=== PATIENT | male | born 1935 | race Caucasian/White ===

== ENCOUNTER 2017-08-19 12:23 | Day surgery (SDC) | payer MEDICARE ==
[~2017-08-19] VITALS: Ht 172.7 cm; Wt 102.8 kg
[~2017-08-19 12:23] MED LIST: 24 HOUR ALLER15.8 ML; ALPHA; AMLODIPINE-ATO1 EAC2; ASCO500; ATOR40TA; CALCIUM CITRAT1 EAC6; CENTRUM SILVER1 EAC2; DORZOPSO; HYDCHL12.5; HYDCHL25; HYDR1TAB94; LATA.005SO; METFORMIN HCL1000 MG; METO50ER; MULT50L; Niaspan1000 MG; OMEP20ER; Omeprazole20 M1; PROM25S; RAMI5; Ramipril10 MG; SIMV40; Saw Palmetto500 MG; Saw Palmetto80 MG; TAMS.4ER; TIMO.5OPSO; TIMOPTIC 0.25%1 EACH; UBID10; Veramyst10 GM; Xalatan2.5 ML
[2017-08-19] MEDS ORDERED: ATOR40TA PO (13:08)
[2017-08-19] MEDS ORDERED: Combigan Eye Dro5 ML (13:08)
== END 2017-08-19 15:40 | disposition home or self-care (01) ==
LOC: ORSCSDS 12:23
PROVIDERS: Internal Medicine Gastroenterology
PROC: 0DBN8ZX Excision of Sigmoid Colon, Via Natural or Artificial Opening Endoscopic, Diagnostic (ICD-10-PCS; principal; 2017-08-19 14:00)
PROC: 0DBM8ZX Excision of Descending Colon, Via Natural or Artificial Opening Endoscopic, Diagnostic (ICD-10-PCS; principal; 2017-08-19 14:00)
PROC: 0DBK8ZX Excision of Ascending Colon, Via Natural or Artificial Opening Endoscopic, Diagnostic (ICD-10-PCS; principal; 2017-08-19 14:00)
DX: Z12.11 Encounter for screening for malignant neoplasm of colon (principal); D12.2 Benign neoplasm of ascending colon; D12.4 Benign neoplasm of descending colon; D12.5 Benign neoplasm of sigmoid colon; K64.8 Other hemorrhoids; Z80.0 Family history of malignant neoplasm of digestive organs; E11.319 Type 2 diabetes mellitus with unspecified diabetic retinopathy without macular edema; I10 Essential (primary) hypertension; N40.0 Benign prostatic hyperplasia without lower urinary tract symptoms; E78.5 Hyperlipidemia, unspecified; F17.210 Nicotine dependence, cigarettes, uncomplicated; Z79.84 Long term (current) use of oral hypoglycemic drugs; Z79.899 Other long term (current) drug therapy
CPT/HCPCS: 82947; 88305; 93005; 93010; J7120

== ENCOUNTER 2019-08-11 08:44 | Day surgery (SDC) | payer MEDICARE ==
[~2019-08-11] VITALS: Ht 172.7 cm; Wt 110.4 kg
[~2019-08-11 08:44] MED LIST changes: +ATOR40TA PO; +Combigan Eye Dro5 ML
== END 2019-08-11 11:46 | disposition home or self-care (01) ==
LOC: ORSCSDS 08:44
PROVIDERS: Ophthalmology
PROC: 08RJ3JZ Replacement of Right Lens with Synthetic Substitute, Percutaneous Approach (ICD-10-PCS; principal; 2019-08-11 10:30)
DX: H25.11 Age-related nuclear cataract, right eye (principal); I10 Essential (primary) hypertension; E11.9 Type 2 diabetes mellitus without complications; Z79.899 Other long term (current) drug therapy; K21.9 Gastro-esophageal reflux disease without esophagitis; Z87.891 Personal history of nicotine dependence; Z79.84 Long term (current) use of oral hypoglycemic drugs
CPT/HCPCS: 82947; J2001; J2250; J3010; J3301; J7040; V2632

== ENCOUNTER → 2021-11-15 | Outpatient (CLI) | payer OTHER | END | disposition home or self-care (01) | LOC: LAB 11:22 → PLD 11:22 → LAB SHORT 11:22 | DX: D04.4 Carcinoma in situ of skin of scalp and neck (principal); L57.0 Actinic keratosis | CPT/HCPCS: 88305 ==

== ENCOUNTER → 2022-08-01 | Outpatient (CLI) | payer OTHER | LOC: LAB SHORT 14:53 → PLD 14:53 | DX: D48.5 Neoplasm of uncertain behavior of skin (principal) | CPT/HCPCS: 88305 ==

== ENCOUNTER → 2022-08-27 | Outpatient (CLI) | payer OTHER | LOC: PLD 07:57 → LAB SHORT 07:57 | DX: L81.4 Other melanin hyperpigmentation (principal) | CPT/HCPCS: 88305 ==

== ENCOUNTER → 2022-09-10 | Outpatient (CLI) | payer OTHER | END | disposition home or self-care (01) | LOC: LAB SHORT 14:33 → LAB 14:33 | DX: C44.310 Basal cell carcinoma of skin of unspecified parts of face (principal) | CPT/HCPCS: 88305 ==

== ENCOUNTER → 2023-01-27 | Outpatient (CLI) | payer OTHER ==
[2023-01-27 13:50] LABS: Alanine Aminotransfer (ALT/SGP 33 U/L (12-78); Albumin, Blood 3.8 g/dL (3.4-5.0); Albumin/Globulin Ratio 1.2 (0.8-1.8); Alk Phos 70 U/L (50-136); Anion Gap 7 mmol/L (6-16); Aspartate Aminotrans (AST/SGOT 26 U/L (12-37); Bilirubin, Total 0.7 mg/dL (0.1-1.0); Blood Urea Nitrogen 24 mg/dL (8-24); Bun/Creatinine Ratio 27.7 (12.0-20.0); CO2, Blood 27 mmol/L (21-32); Calcium, Blood 10.1 mg/dL (8.5-10.1); Chloride, Blood 108 mmol/L (98-108); Cholesterol 137 mg/dL (50-200); Creatinine, Blood 0.87 mg/dL (0.60-1.20); Globulin, Blood 3.2 g/dL (2.2-4.0); Glomerular Filtration Rate 84 (60-); Glucose, Blood 123 mg/dL (70-99); HDL Cholesterol 45 mg/dL (>39); LDL/HDL RATIO 1.5; Low Density Lipoprotein Chol 68 mg/dL (0-110); Potassium, Blood 3.9 mmol/L (3.5-5.5); Sodium, Blood 142 mmol/L (136-145); Triglycerides 118 mg/dL (30-160); Very Low Density Lipoprot Chol 23 mg/dL (6-32)
== END | disposition home or self-care (01) ==
LOC: LAB SHORT 12:05 → LAB 12:05
PROVIDERS: Physician Assistant
DX: E11.69 Type 2 diabetes mellitus with other specified complication (principal); E11.29 Type 2 diabetes mellitus with other diabetic kidney complication; E11.59 Type 2 diabetes mellitus with other circulatory complications; E78.2 Mixed hyperlipidemia
CPT/HCPCS: 80053; 80061; 83036

== ENCOUNTER → 2023-02-28 | Outpatient (CLI) | payer OTHER | END | disposition home or self-care (01) | LOC: LAB SHORT 07:43 → PLD 07:43 | DX: C44.229 Squamous cell carcinoma of skin of left ear and external auricular canal (principal) | CPT/HCPCS: 88305 ==

== ENCOUNTER → 2023-05-19 | Outpatient (CLI) | payer OTHER ==
[~2023-05-19] MED LIST changes: +AMLO5 PO; -CENTRUM SILVER1 EAC2; +CENTRUM SILVER1 EAC2 PO; +COMBIGAN EYE BOTHEYES; -Combigan Eye Dro5 ML; +DORZOPSO BOTHEYES; -HYDCHL25; +HYDCHL25 PO; +IBUP200 PO; +LATA.005SO BOTHEYES; +OMEP20ER PO; -Omeprazole20 M1; -Ramipril10 MG; +Ramipril10 MG PO; +TIMO.25OPS BOTHEYES; -TIMOPTIC 0.25%1 EACH; -UBID10; +UBID10 PO; -Xalatan2.5 ML
== END ==
LOC: LAB SHORT 14:44 → LAB 14:44
DX: C44.229 Squamous cell carcinoma of skin of left ear and external auricular canal (principal)
CPT/HCPCS: 88305

== ENCOUNTER 2023-07-10 08:02 | Day surgery (SDC) | payer OTHER ==
[~2023-07-10] VITALS: Ht 172.7 cm; Wt 112.0 kg
[2023-07-10] VITALS (7 sets, daily range): BP systolic 139–162; BP diastolic 51–89
--- NOTE | 2023-07-10 10:44 | NUR ---
PT BACK TO THE RECOVERY ROOM VIA RECLINER AFTER PROCEDURE. AWAKE AND ALERT, DENIES ANY PAIN OR DISCOMFORT. RIGHT RADIAL SITE WITH PRELUDE BAND AND SPLINT IN PLACE.
--- NOTE | 2023-07-10 11:01 | NUR ---
DR PINO IN ROOM DISCUSSING PLAN OF CARE. PITER. CHERYL. CALL LIGHT WITHIN REACH.
--- NOTE | 2023-07-10 11:22 | NUR ---
APPROX 3CC'S AIR REMOVED FROM RIGHT RADIAL PRELUDE BAND. NO BLEEDING OR SWELLING AT SITE. PT VISITING WITH FAMILY IN NO DISTRESS. CALL LIGHT IN REACH
--- NOTE | 2023-07-10 11:45 | NUR ---
RIGHT RADIAL PRELUDE BAND HAS BEEN FULLY DEFLATED. NO BLEEDING OR SWELLING NOTED AT SITE. PT VISITING WITH FAMILY, DENIES PAIN OR NEEDS. VSS, CALL LIGHT IN REACH.
--- NOTE | 2023-07-10 12:45 | NUR ---
IV DC'D, CATH INTACT. PT AND FAMILY VERBALIZED UNDERSTANDING OF DISCHARGE AND FOLLOW UP INFO. RIGHT RADIAL SITE SOFT AND NON-TENDER. CLOTH DOT DRESSING AND SPLINT IN PLACE ON RIGHT WRIST. PT OUT TO CAR VIA WHEELCHAIR, ACCOMPANIED BY SPOUSE AND DAUGHTER.
== END 2023-07-10 22:53 | disposition home or self-care (01) ==
LOC: MHTC 08:02
DX: Z01.810 Encounter for preprocedural cardiovascular examination (principal); I35.0 Nonrheumatic aortic (valve) stenosis; I25.10 Atherosclerotic heart disease of native coronary artery without angina pectoris; I10 Essential (primary) hypertension; E78.5 Hyperlipidemia, unspecified; E11.9 Type 2 diabetes mellitus without complications; K21.9 Gastro-esophageal reflux disease without esophagitis; Z79.899 Other long term (current) drug therapy
CPT/HCPCS: 76937; 93454; 99152; 99153; C1769; C1887; C1894; J1644; J2250; J3010; J7030; J7050; Q9967

== ENCOUNTER 2024-04-08 06:21 | Day surgery (SDC) | payer OTHER ==
[2024-04-08] VITALS (11 sets, daily range): BP systolic 113–170; BP diastolic 58–90
[~2024-04-08] VITALS: Ht 172.7 cm; Wt 92.7 kg
[2024-04-08] MEDS ORDERED: Midazolam HCl 1MG / ML 2ML Vial ONE (06:56)
[2024-04-08] MEDS ORDERED: propofoL 60 ML IV ONE (06:56)
[2024-04-08] MEDS ORDERED: Lactated Ringer's 1,000 ML IV SCH ×2 (07:00→10:55)
[2024-04-08] MEDS ORDERED: Chlorhexidine Mouth Care 15 ML UDC MT SCH (07:00)
[2024-04-08] MEDS ORDERED: OxyCODONE HCL 10 MG TABCR PO SCH (07:00)
[2024-04-08] MEDS ORDERED: Tranexamic Acid 100 ML IV SCH (07:00)
[2024-04-08] MEDS ORDERED: Acetaminophen 500 MG Tab PO SCH ×2 (07:00→16:00)
[2024-04-08] MEDS ORDERED: Ropivacaine 0.5% HCl/Pf 123.125 MG,EPINEPHrine HCL 0.25 MG,Ketorolac Tromethamine 15 MG... INFIL SCH (07:00)
[2024-04-08] MEDS ORDERED: CeFAZolin Sodium 2,000 MG in NS 100 ML IV SCH ×2 (07:00→17:00)
--- NOTE | 2024-04-08 07:05 | NUR ---
PT TO [facility] FOR RIGHT HIP ARTHROPLASTY WITH DR JOHNSON. PT HERE WITH HIS AND DAUGHTER. CHART REVIEWED. PLAN OF CARE DISCUSSED AND QUESTIONS ANSWERED.
[2024-04-08] MEDS ORDERED: OXYC5 (07:24)
--- NOTE | 2024-04-08 08:14 | NUR ---
PT GLASSES TO PACU
[2024-04-08] MEDS ORDERED: METO25 PO (08:25)
[2024-04-08] MEDS ORDERED: FentaNYL Citrate 50 MCG/ML 2 ML Injection ONE (08:43)
[2024-04-08] MEDS ORDERED: Ropivacaine 0.5% HCl/Pf 123.125 MG,EPINEPHrine HCL 0.25 MG,Clonidine HCl/Pf 40 MCG in N... INFIL SCH (09:00)
[2024-04-08] MEDS ORDERED: Glycopyrrolate 0.2 MG/ML 5ML VIAL ONE (09:35)
[2024-04-08] MEDS ORDERED: Atropine Sulfate 0.4 MG/1 ML Vial ONE ×4 (09:35→10:28)
[2024-04-08] MEDS ORDERED: ePHEDrine Sulfate 50 MG/ML 1ML Injection ONE (09:48)
[2024-04-08] MEDS ORDERED: OxyCODONE HCL 5 MG TAB PO PRN ×2 (10:50→10:55)
[2024-04-08] MEDS ORDERED: Promethazine HCl 25 MG Tab PO PRN (10:50)
[2024-04-08] MEDS ORDERED: HYDROmorphone HCl/Pf 1MG SYR IV PRN (10:55)
[2024-04-08] MEDS ORDERED: Magnesium Hydroxide Conc 10 ML UDC PO PRN (10:55)
[2024-04-08] MEDS ORDERED: Ondansetron HCl 2 MG / ML 2ML Vial IV PRN (10:55)
[2024-04-08] MEDS ORDERED: Prochlorperazine Edisylate 10 mg Vial IV PRN (10:55)
[2024-04-08] MEDS ORDERED: DiphenhydrAMINE HCL 25 MG Cap PO PRN (11:00)
[2024-04-08] MEDS ORDERED: FLU VACC TS2024-25(6MOS UP)/PF 45 MCG/0.5 ML SYRINGE IM SCH (11:00)
[2024-04-08] MEDS ORDERED: Metoclopramide HCl 5MG / ML 2ML Vial IV PRN (11:00)
[2024-04-08] MEDS ORDERED: Bisacodyl 10 MG Supp PR PRN (11:00)
--- NOTE | 2024-04-08 11:28 | NUR ---
PT ARRIVED TO THE ROOM VIA HOSPITAL BED. A&O X4, VSS. NOT ABLE TO FEEL TOUCH TO TOES AT THIS TIME. PPP. INCISION SITE COVERED WITH AQUACEL C/D/I. FAMILY AT BEDSIDE.
[2024-04-08] MEDS ORDERED: Ketorolac Tromethamine 15mg Vial IV SCH (12:00)
--- NOTE | 2024-04-08 17:33 | NUR ---
PT COMPLAINING OF BACK PAIN. LOWERED HEAD OF BED SLIGHTLY, PT REPORTED RELIEF OF PRESSURE CAUSING PAIN IN HIS BACK AT THIS TIME. MEDICATED PER EMAR.
--- NOTE | 2024-04-08 18:41 | NUR ---
SHIFT SUMMARY POD 0 RTHA. INCISION COVERED WITH AQUACEL, C/D/I. PT CAN WIGGLE AND FEEL TOES, BUT NOT LIFT LEGS OFF THE BED AT THIS TIME. EATING AND DRINKING WITHOUT DIFFICULTY. WAITING FOR FIRST POST OP VOID STILL. BLADDER SCANNED AT 1700 WITH 247ML. VSS. A&O X4. PPP. CALL LIGHT WITHIN REACH, BED IN LOWEST POSITION.
[2024-04-08] MEDS ORDERED: Docusate Sodium 100 MG Cap PO SCH (21:00)
[2024-04-09 00:28] VITALS: BP 132/87
[2024-04-09 04:22] VITALS: BP 124/67
[2024-04-09 04:48] LABS: BASOPHILS ABSOLUTE AUTO 0.03 K/mm3 (0.00-0.23); BASOPHILS PERCENT AUTO 0 % (0-2); EOSINOPHILS ABSOLUTE AUTO 0.23 K/mm3 (0.00-0.68); EOSINOPHILS PERCENT AUTO 3 % (0-6); Hematocrit 31.9 % (37.0-53.0); Hemoglobin 10.8 g/dL (13.5-17.5); IMMATURE GRAN ABSOLUTE AUTO 0.01 K/mm3 (0.00-0.10); IMMATURE GRAN PERCENT AUTO 0 % (0-1); LYMPHOCYTES ABSOLUTE AUTO 1.11 K/mm3 (0.84-5.20); LYMPHOCYTES PERCENT AUTO 15 % (21-46); MONOCYTES ABSOLUTE AUTO 0.89 K/mm3 (0.16-1.47); MONOCYTES PERCENT AUTO 12 % (4-13); Mean Corpuscular HGB 32.6 pg (26.0-34.0); Mean Corpuscular HGB Conc 33.9 g/dL (31.5-36.5); Mean Corpuscular Volume 96 fL (80-100); Mean Platelet Volume 11.1 fL (9.1-12.4); NEUTROPHILS ABSOLUTE AUTO 4.95 K/mm3 (1.96-9.15); NEUTROPHILS PERCENT AUTO 69 % (41-73); Platelet Count 144 K/mm3 (150-400); RDW Coefficient Variation 14.6 % (11.7-14.2); RDW Standard Deviation 51.7 fL (35.1-46.3); Red Blood Cell Count 3.31 M/mm3 (4.30-5.90); White Blood Cell Count 7.22 K/mm3 (4.00-11.30)
[2024-04-09 05:19] LABS: Bun/Creatinine Ratio 21.5 (12.0-20.0); Calcium, Blood 9.3 mg/dL (8.5-10.1); Creatinine, Blood 1.07 mg/dL (0.60-1.20); Magnesium, Blood 1.5 mg/dL (1.6-2.4); Potassium, Blood 3.3 mmol/L (3.5-5.5)
--- NOTE | 2024-04-09 05:48 | NUR ---
NOC SUMMARY- PT IS AMBULATING AND VOIDING/ PT REPORTS SOME N/T. PT PAIN MANAGED WELL. PT SLEPT IN RECLINER FOR COMFORT. PT HAS NO COMPLAINTS THIS AM. DRESSIING C/D/I. POLAR WRAP IN PLACE. CALL LIGHT IN REACH.
[2024-04-09 07:33] VITALS: BP 143/57
[2024-04-09] MEDS ORDERED: Aspirin 81 MG Chew PO SCH (09:00)
--- NOTE | 2024-04-09 11:23 | NUR ---
DISCHARGE SUMMARY POD1 R SANDEEP, A/OX4, VSS, TOLERATING PO, PAIN WELL MANAGED PER EMAR, AMBULATING WITH FWW/GB, VOIING INDEPENDENTLY. DISCUSSED DISCHARGE INSTRUCTIONS WITH HIM INCLUDING HOME CARE, MEDICATIONS, AND FOLLOW UP APPOINTMENTS. ANSWERED ALL PATIENT AND FAMILY QUESTIONS, REMOVED IV ACCESS, PT ESCTORTED OUT VIA WC TO PRIVATE AUTO TO GO HOME.
== END 2024-04-09 10:41 | disposition home or self-care (01) ==
LOC: ORSCMMR 06:21 → ORD 08:00 → ORSCMMR 08:00 → SURS 11:19 → ORSCMMR 04-09 10:41
PROVIDERS: Orthopaedic Surgery
PROC: 0SR90JZ Replacement of Right Hip Joint with Synthetic Substitute, Open Approach (ICD-10-PCS; principal; 2024-04-08 08:00)
DX: M16.11 Unilateral primary osteoarthritis, right hip (principal); I12.9 Hypertensive chronic kidney disease with stage 1 through stage 4 chronic kidney disease, or unspecified chronic kidney disease; E11.22 Type 2 diabetes mellitus with diabetic chronic kidney disease; N18.9 Chronic kidney disease, unspecified; E03.9 Hypothyroidism, unspecified; I25.10 Atherosclerotic heart disease of native coronary artery without angina pectoris; Z79.899 Other long term (current) drug therapy
CPT/HCPCS: 36415; 72170; 80048; 82947; 83735; 85025; 97110; 97162; 97530; A9270; C1776; J0171; J0461; J0690; J0735; J1885; J2250; J2704; J2795; J3010; J7120

== ENCOUNTER 2024-07-03 11:18 | Observation (INO) | payer OTHER ==
[~2024-07-03] VITALS: Ht 170.2 cm; Wt 92.9 kg
[~2024-07-03 11:18] MED LIST changes: -ASCO500 PO; -Alphagan P5 ML BOTHEYES; -Aspir 8181 MG PO; -FISH OIL 1,2001 EAC4 PO; -FLUTICASONE-SA1 EAC1; -LEVSOD75 PO; -LOSA25 PO; -OXYC5 PO; -POLY500 PO; -POTCHL20ER PO; -SENNA LAXATIVE8.6 MG PO; -TORSE20 PO; -VITAMIN B122500 MC1 PO; -XARELTO20 MG PO
[2024-07-03 12:40] LABS: Influenza A, PCR NEGATIVE (NEGATIVE); Influenza B, PCR NEGATIVE (NEGATIVE); Resp Syncytial Virus, PCR NEGATIVE (NEGATIVE); SARS-Cov-2 (COVID-19) PCR, MMC NEGATIVE (NEGATIVE)
[2024-07-03] MEDS ORDERED: HydrALAZINE HCl 20 MG / ML 1ML Vial IV ONE (13:00)
[2024-07-03 13:01] LABS: BASOPHILS ABSOLUTE AUTO 0.04 K/mm3 (0.00-0.23); BASOPHILS PERCENT AUTO 0 % (0-2); EOSINOPHILS ABSOLUTE AUTO 0.07 K/mm3 (0.00-0.68); EOSINOPHILS PERCENT AUTO 1 % (0-6); Hematocrit 37.7 % (37.0-53.0); Hemoglobin 12.7 g/dL (13.5-17.5); IMMATURE GRAN ABSOLUTE AUTO 0.03 K/mm3 (0.00-0.10); IMMATURE GRAN PERCENT AUTO 0 % (0-1); LYMPHOCYTES ABSOLUTE AUTO 1.04 K/mm3 (0.84-5.20); LYMPHOCYTES PERCENT AUTO 10 % (21-46); MONOCYTES ABSOLUTE AUTO 1.58 K/mm3 (0.16-1.47); MONOCYTES PERCENT AUTO 16 % (4-13); Mean Corpuscular HGB 32.2 pg (26.0-34.0); Mean Corpuscular HGB Conc 33.7 g/dL (31.5-36.5); Mean Corpuscular Volume 95 fL (80-100); Mean Platelet Volume 10.3 fL (9.1-12.4); NEUTROPHILS ABSOLUTE AUTO 7.36 K/mm3 (1.96-9.15); NEUTROPHILS PERCENT AUTO 73 % (41-73); Platelet Count 213 K/mm3 (150-400); RDW Coefficient Variation 14.1 % (11.7-14.2); RDW Standard Deviation 49.7 fL (35.1-46.3); Red Blood Cell Count 3.95 M/mm3 (4.30-5.90); White Blood Cell Count 10.12 K/mm3 (4.00-11.30)
[2024-07-03 13:28] LABS: Albumin, Blood 3.5 g/dL (3.4-5.0); Albumin/Globulin Ratio 0.9 (0.8-1.8); Bilirubin, Total 1.6 mg/dL (0.1-1.0); Bun/Creatinine Ratio 17.1 (12.0-20.0); Calcium, Blood 9.8 mg/dL (8.5-10.1); Creatinine, Blood 0.93 mg/dL (0.60-1.20); Globulin, Blood 3.7 g/dL (2.2-4.0); Potassium, Blood 2.9 mmol/L (3.5-5.5); Total Protein, Blood 7.2 g/dL (6.4-8.2)
[2024-07-03] MEDS ORDERED: Aspir 8181 MG PO (13:31)
[2024-07-03] MEDS ORDERED: FLUTICASONE-SA1 EAC1 (13:31)
[2024-07-03] MEDS ORDERED: LEVSOD75 PO (13:32)
[2024-07-03] MEDS ORDERED: OXYC5 PO (13:33)
[2024-07-03] MEDS ORDERED: POTCHL20ER PO (13:33)
[2024-07-03] MEDS ORDERED: FISH OIL 1,2001 EAC4 PO (13:34)
[2024-07-03] MEDS ORDERED: TORSE20 PO (13:34)
[2024-07-03] MEDS ORDERED: SENNA LAXATIVE8.6 MG PO (13:34)
[2024-07-03] MEDS ORDERED: ASCO500 PO (13:35)
[2024-07-03] MEDS ORDERED: VITAMIN B122500 MC1 PO (13:35)
[2024-07-03] MEDS ORDERED: Alphagan P5 ML BOTHEYES (13:36)
[2024-07-03] MEDS ORDERED: POLY500 PO (13:36)
[2024-07-03] MEDS ORDERED: Ondansetron 4 MG TAB PO PRN (14:25)
[2024-07-03] MEDS ORDERED: FLU VACC TS2024-25(6MOS UP)/PF 45 MCG/0.5 ML SYRINGE IM SCH (14:25)
[2024-07-03 17:15] VITALS: BP 177/78
--- NOTE | 2024-07-03 18:02 | NUR ---
PT ARRIVED TO ROOM AOX4 AND COOPERATIVE OF CARE. PT IS ABLE TO MAKE NEEDS KNOWN AND HAS CALL LIGHT WITHIN REACH. PT WAS A ONE PERSON STANDBY TO RESTROOM. BED ALARM IN PLACE WILL CONTINUE TO MONITOR.
[2024-07-03 19:20] VITALS: BP 160/79
[2024-07-03] MEDS ORDERED: OxyCODONE HCL 5 MG TAB PO PRN (20:55)
[2024-07-03] MEDS ORDERED: AmLODIPine Besylate 5 MG Tab PO SCH (21:00)
[2024-07-03] MEDS ORDERED: Dorzolamide 2% Opth Soln BOTHEYES SCH (21:00)
[2024-07-03] MEDS ORDERED: Brimonidine Tartrate 0.2% Opth 5 ml BOTHEYES SCH (21:00)
[2024-07-03] MEDS ORDERED: Latanoprost 0.005% Opth Soln 2.5 ML BOTHEYES SCH (21:00)
[2024-07-03] MEDS ORDERED: Mometasone/Formoterol MDI 100/5 mcg 13 GM INH SCH (21:45)
[2024-07-03] MEDS ORDERED: Acetaminophen 325 MG TABLET PO PRN (22:10)
[2024-07-04 05:54] VITALS: BP 155/73
[2024-07-04] MEDS ORDERED: Levothyroxine Sodium 0.075 MG Tab PO SCH (06:00)
[2024-07-04] MEDS ORDERED: Omeprazole 20 MG CapCR PO SCH (06:00)
--- NOTE | 2024-07-04 06:07 | NUR ---
SHIFT SUMMARY PT A&Ox4 AND [place]LEASANT. [place] AND TALKATIVE. NO C/O CP OR PAIN IN THROAT. PT DID C/O CHRONIC LOW BACK PAIN AND MEDICATED WITH TYLENOL. BP ELEVATED AT START OF SHIFT BUT AMLODIPINE HOME DOSE STARTED WITH GOOD EFFECT. NO ACUTE CHANGES. BED IN LOWEST POSITION AND CALL LIGHT IN REACH.
[2024-07-04 06:24] LABS: BASOPHILS ABSOLUTE AUTO 0.04 K/mm3 (0.00-0.23); BASOPHILS PERCENT AUTO 1 % (0-2); EOSINOPHILS ABSOLUTE AUTO 0.12 K/mm3 (0.00-0.68); EOSINOPHILS PERCENT AUTO 2 % (0-6); Hematocrit 33.2 % (37.0-53.0); Hemoglobin 11.2 g/dL (13.5-17.5); IMMATURE GRAN ABSOLUTE AUTO 0.02 K/mm3 (0.00-0.10); IMMATURE GRAN PERCENT AUTO 0 % (0-1); LYMPHOCYTES ABSOLUTE AUTO 0.96 K/mm3 (0.84-5.20); LYMPHOCYTES PERCENT AUTO 15 % (21-46); MONOCYTES ABSOLUTE AUTO 1.01 K/mm3 (0.16-1.47); MONOCYTES PERCENT AUTO 15 % (4-13); Mean Corpuscular HGB 32.3 pg (26.0-34.0); Mean Corpuscular HGB Conc 33.7 g/dL (31.5-36.5); Mean Corpuscular Volume 96 fL (80-100); Mean Platelet Volume 10.7 fL (9.1-12.4); NEUTROPHILS ABSOLUTE AUTO 4.39 K/mm3 (1.96-9.15); NEUTROPHILS PERCENT AUTO 67 % (41-73); Platelet Count 165 K/mm3 (150-400); RDW Coefficient Variation 14.5 % (11.7-14.2); RDW Standard Deviation 50.6 fL (35.1-46.3); Red Blood Cell Count 3.47 M/mm3 (4.30-5.90); White Blood Cell Count 6.54 K/mm3 (4.00-11.30)
[2024-07-04 06:41] LABS: Albumin, Blood 2.9 g/dL (3.4-5.0); Albumin/Globulin Ratio 0.9 (0.8-1.8); Bilirubin, Total 1.5 mg/dL (0.1-1.0); Bun/Creatinine Ratio 18.7 (12.0-20.0); Calcium, Blood 9.7 mg/dL (8.5-10.1); Creatinine, Blood 0.91 mg/dL (0.60-1.20); Globulin, Blood 3.3 g/dL (2.2-4.0); Potassium, Blood 2.5 mmol/L (3.5-5.5); Total Protein, Blood 6.2 g/dL (6.4-8.2)
[2024-07-04 08:12] VITALS: BP 159/70
[2024-07-04] MEDS ORDERED: Enoxaparin 40 MG/0.4 ML SYR SC SCH (09:00)
[2024-07-04] MEDS ORDERED: Torsemide 20 MG TAB PO SCH (09:00)
[2024-07-04] MEDS ORDERED: Misc. Capsule PO SCH (09:00)
[2024-07-04] MEDS ORDERED: Ascorbic Acid 500 MG Tab PO SCH (09:00)
[2024-07-04] MEDS ORDERED: Metoprolol Succinate 25 MG TABCR PO SCH (09:00)
[2024-07-04] MEDS ORDERED: Aspirin 81 MG Chew PO SCH (09:00)
[2024-07-04] MEDS ORDERED: Multivitamins/Minerals TAB PO SCH (09:00)
[2024-07-04] MEDS ORDERED: Potassium Chloride 20 MEQ TabCR PO SCH (09:00)
[2024-07-04] MEDS ORDERED: Calcium Polycarbophil 625 MG Tab PO SCH (09:00)
[2024-07-04] MEDS ORDERED: Sennosides 8.6 MG Tab PO SCH (09:00)
[2024-07-04] MEDS ORDERED: HydroCHLOROthiazide 25 mg Tab PO SCH (09:00)
[2024-07-04] MEDS ORDERED: Atorvastatin 40 MG Tab PO SCH (09:00)
[2024-07-04] MEDS ORDERED: Docosahexanoic Acid/EPA 1,000 MG CAP PO SCH (09:00)
[2024-07-04] MEDS ORDERED: Cyanocobalamin 500 MCG Tab PO SCH (09:00)
[2024-07-04] MEDS ORDERED: Potassium Chloride 20 MEQ/15 ML UDC PO SCH (11:30)
[2024-07-04 12:32] LABS: Bun/Creatinine Ratio 21.2 (12.0-20.0); Calcium, Blood 10.1 mg/dL (8.5-10.1); Creatinine, Blood 0.9 mg/dL (0.60-1.20); Magnesium, Blood 2.1 mg/dL (1.6-2.4)
--- NOTE | 2024-07-04 12:51 | NUR ---
PT TAKEN DOWN TO IMAGING AT 1230 NG TUBE REMOVED FROM SUCTION. PT ARRIVED BACK TO ROOM AT 1250 SAT IN BED HAD EMESIS OF 300 OUT IMMEDIATELY. HOLDING SUCTION PER IMAGING INSTRUCTIONS.WILL CONTINUE TO MONITOR.
[2024-07-04] MEDS ORDERED: Losartan Potassium 25 MG Tab PO ONE (15:25)
[2024-07-04] MEDS ORDERED: Furosemide 10 MG/ML 4ML Vial IV ONE (15:25)
[2024-07-04] MEDS ORDERED: Potassium Chloride 20 MEQ TabCR PO ONE (16:00)
[2024-07-04 16:31] VITALS: BP 139/66
[2024-07-04] MEDS ORDERED: Rivaroxaban 10 MG Tab PO SCH (17:00)
[2024-07-04] MEDS ORDERED: XARELTO20 MG PO (17:02)
[2024-07-04] MEDS ORDERED: LOSA25 PO (17:03)
--- NOTE | 2024-07-04 19:17 | NUR ---
PT DISCHARGED AT 1835 WITH FAMILY. ALL MEDICATION AND PAPERWORK REVIEWED AND EDUCATIONAL MATERIAL SENT WITH PT. DR ROMO WENT OVER NEED FOR FOLLOW UP WITH [employer]. FAMILY VERBALIZED UNDERSTANDING. NO DISTRESS NOTED AOX4. PT ESCORTED OUT TO N ENTRANCE VIA WHEEL CHAIR. STANDBY ASSIST WITH WALKER.
[2024-07-05] MEDS ORDERED: Potassium Chloride 20 MEQ/15 ML UDC PO SCH (09:00)
== END 2024-07-04 19:33 | disposition home or self-care (01) ==
LOC: ER 11:18 → MEDS 14:22 → ERHOLD 14:22 → MEDS 14:22
PROVIDERS: Student in an Organized Health Care Education/Training Program; ADMIT Internal Medicine
DX: I25.118 Atherosclerotic heart disease of native coronary artery with other forms of angina pectoris (principal); E03.9 Hypothyroidism, unspecified; K21.9 Gastro-esophageal reflux disease without esophagitis; I13.0 Hypertensive heart and chronic kidney disease with heart failure and stage 1 through stage 4 chronic kidney disease, or unspecified chronic kidney disease; I50.30 Unspecified diastolic (congestive) heart failure; R07.9 Chest pain, unspecified; N18.2 Chronic kidney disease, stage 2 (mild); E11.22 Type 2 diabetes mellitus with diabetic chronic kidney disease; E78.5 Hyperlipidemia, unspecified; Z79.82 Long term (current) use of aspirin; Z79.899 Other long term (current) drug therapy; Z87.891 Personal history of nicotine dependence; Z95.1 Presence of aortocoronary bypass graft
CPT/HCPCS: 0241U; 36415; 71046; 80048; 80053; 83735; 83880; 84484; 85025; 93005; 93010; 93306; 94640; 94664; 94760; 96374; 96376; 99285-25; A9270; G0378; J0360; J1650; J1940

== ENCOUNTER → 2024-07-03 | Outpatient (CLI) | payer OTHER ==
[~2024-07-03] MED LIST changes: +ASCO500 PO; +Alphagan P5 ML BOTHEYES; +Aspir 8181 MG PO; +FISH OIL 1,2001 EAC4 PO; +FLUTICASONE-SA1 EAC1; +LEVSOD75 PO; +LOSA25 PO; +METO25 PO; +OXYC5; +OXYC5 PO; +POLY500 PO; +POTCHL20ER PO; +SENNA LAXATIVE8.6 MG PO; +TORSE20 PO; +VITAMIN B122500 MC1 PO; +XARELTO20 MG PO
[2024-07-03 11:48] LABS: BASOPHILS ABSOLUTE AUTO 0.03 K/mm3 (0.00-0.23); BASOPHILS PERCENT AUTO 0 % (0-2); EOSINOPHILS ABSOLUTE AUTO 0.09 K/mm3 (0.00-0.68); EOSINOPHILS PERCENT AUTO 1 % (0-6); Hematocrit 38.5 % (37.0-53.0); IMMATURE GRAN ABSOLUTE AUTO 0.02 K/mm3 (0.00-0.10); IMMATURE GRAN PERCENT AUTO 0 % (0-1); LYMPHOCYTES ABSOLUTE AUTO 0.89 K/mm3 (0.84-5.20); LYMPHOCYTES PERCENT AUTO 10 % (21-46); MONOCYTES ABSOLUTE AUTO 1.33 K/mm3 (0.16-1.47); MONOCYTES PERCENT AUTO 15 % (4-13); Mean Corpuscular HGB Conc 33.8 g/dL (31.5-36.5); Mean Corpuscular Volume 95 fL (80-100); Mean Platelet Volume 11.1 fL (9.1-12.4); NEUTROPHILS ABSOLUTE AUTO 6.72 K/mm3 (1.96-9.15); NEUTROPHILS PERCENT AUTO 74 % (41-73); Platelet Count 218 K/mm3 (150-400); RDW Coefficient Variation 14.2 % (11.7-14.2); RDW Standard Deviation 49.2 fL (35.1-46.3); Red Blood Cell Count 4.06 M/mm3 (4.30-5.90); White Blood Cell Count 9.08 K/mm3 (4.00-11.30)
[2024-07-03 12:08] LABS: Albumin, Blood 3.6 g/dL (3.4-5.0); Albumin/Globulin Ratio 0.9 (0.8-1.8); Bilirubin, Total 1.8 mg/dL (0.1-1.0); Bun/Creatinine Ratio 15.7 (12.0-20.0); Calcium, Blood 10.2 mg/dL (8.5-10.1); Creatinine, Blood 0.96 mg/dL (0.60-1.20); Globulin, Blood 3.8 g/dL (2.2-4.0); Potassium, Blood 2.7 mmol/L (3.5-5.5); Total Protein, Blood 7.4 g/dL (6.4-8.2)
== END | disposition home or self-care (01) ==
LOC: LAB SHORT 10:30 → LAB 10:30
PROVIDERS: Physician Assistant
DX: R07.9 Chest pain, unspecified (principal)
CPT/HCPCS: 80053; 83880; 84484; 85025; 93005; 93010